=== PATIENT | female | born 1940 | race Caucasian/White ===

== ENCOUNTER 2019-08-03 14:14 | Inpatient (IN) | payer OTHER ==
[~2019-08-03] VITALS: Ht 167.6 cm; Wt 40.6 kg
[2019-08-03 14:23] VITALS: BP 121/70
[2019-08-03 15:12] LABS: BASOPHILS 0.2 % (0.0-2.0); EOSINOPHILS 0.7 % (0.0-3.0); HEMATOCRIT 24.6 % (37.0-47.0); HEMOGLOBIN 7.9 gm/dL (12.0-15.0); LYMPHOCYTES 11.4 % (24.0-44.0); MCH 26.2 pg (26.0-34.0); MCHC 32.1 g/dL (28.0-37.0); MCV 81.7 fL (80.0-100.0); MONOCYTES 7.1 % (1.0-8.0); PLATELET COUNT 454 thou/uL (150-400); POLYS 80.6 % (36.0-66.0); RBC 3.01 mil/uL (4.20-5.00); WBC 8.7 thou/uL (4.0-11.0)
[2019-08-03 15:21] LABS: ANION GAP 12 mmol/L (7-16); BUN 24 mg/dL (7-18); CALCIUM 8.4 mg/dL (8.5-10.1); CHLORIDE 92 mmol/L (98-107); CO2 22 mmol/L (21-32); CREATININE 1.2 mg/dL (0.6-1.0); GLUCOSE 137 mg/dL (74-106); POTASSIUM 4.1 mmol/L (3.5-5.1); SODIUM 126 mmol/L (136-145)
[2019-08-03 15:29] LABS: TROPONIN-I <0.06 ng/mL (<0.06)
--- NOTE | 2019-08-03 16:12 | EKG ---
[facility] [place] [address] ELECTROCARDIOGRAM REPORT Name: SLOANE MCNEAL Room #: [facility].#: [id number] Admission: 08/03/19 Attend Phys: Discharge: Date of : 38 Report #: [id number] THIS REPORT FOR: cc: Jim Maria MD, David R. MD Couchonnal, Luis F. MD ~ THIS REPORT FOR: //name// [facility] ED Test Date: 2019-08-03 Test Time: 14:56:47 Pat Name: SLOANE MCNEAL Department: Room: Gender: F Grip Assembler: NIRMAL ELIZABETH : 1940 Requested By: El Gee Order Number: [id number] MD: Daniel Dai Measurements Intervals [place] Rate: 66 P: 77 OR: 237 QRS: -8 QRSD: 79 T: 79 QT: 387 QTc: 406 Interpretive Statements Sinus rhythm Supraventricular bigeminy Prolonged OR interval Probable left atrial enlargement Anteroseptal infarct, age indeterminate No previous ECG available for comparison Electronically Signed On 08-03-2019 16:11:27 CDT by Daniel Dai [email or web address] <ELECTRONICALLY SIGNED> By: Daniel Dai MD 08/03/19 1611 1456 1456 Daniel Dai MD /EPI
[2019-08-03 16:58] LABS: % SATURATION 4 % (20-39); IRON 14 ug/dL (50-170); TIBC 394 ug/dL (250-450)
[2019-08-03 17:01] LABS: CHOLESTEROL 156 mg/dL (<200); HDL CHOLESTEROL 72 mg/dL (>40); LDL CHOLESTEROL 70 mg/dL (<100); TC:HDL 2.2 Ratio (Not establshd); TRIGLYCERIDE 72 mg/dL (<150); VLDL 14 mg/dL (<40)
[2019-08-03 17:48] VITALS: BP 145/67
[2019-08-03 18:02] LABS: FOLIC ACID 21.9 ng/mL (8.6-58.9)
[2019-08-03 18:08] VITALS: BP 107/71
[2019-08-03 18:27] VITALS: BP 164/65
[2019-08-03 22:59] VITALS: BP 152/62
--- NOTE | 2019-08-04 02:54 | NUR ---
ASSUMED CARE OF PT @1900 PT ARRIVED FROM THE ER @1800. A&OX4 ADMISSION DONE AND PT ORIENTED TO ROOM. IV INTACT AND FLUIDS INFUISING. PT ON CLEAR LIQUID DIET. PT STATED SHE LIVES AT [facility] IN [place]. MARIA A MARY NIECE ([phone]) AND ELLIOTT FLORES ([phone]) BOTH PT DPOA. SPOKE WITH ELLIOTT OVER THE PHONE TO GET PT MED REC SHE STATED SHE WILL TALK TO HER NIECE AND SEND IT OVER. FALL PREC IN PLACE AND CALL LIGHT IN REACH WILL CONT WITH POC TILL EOS.
[2019-08-04 04:45] VITALS: BP 177/66
[2019-08-04 05:29] LABS: HEMATOCRIT 24.9 % (37.0-47.0); HEMOGLOBIN 7.9 gm/dL (12.0-15.0); MCH 26.6 pg (26.0-34.0); MCV 83.3 fL (80.0-100.0); RBC 2.98 mil/uL (4.20-5.00); RDW 16.9 % (10.5-14.5); WBC 5.8 thou/uL (4.0-11.0)
[2019-08-04 08:07] VITALS: BP 170/87
[2019-08-04] MEDS ORDERED: LOSARTAN POTAS100 MG PO (10:10)
[2019-08-04] MEDS ORDERED: LOVASTAT10 PO (10:10)
[2019-08-04 10:14] LABS: ALBUMIN 3.7 g/dL (3.4-5.0); DIRECT BILIRUBIN 0.1 mg/dL (<0.1-0.2); TOTAL BILIRUBIN 0.3 mg/dL (<0.1-1.0); TOTAL PROTEIN 6.3 g/dL (6.4-8.2)
--- NOTE | 2019-08-04 10:15 | NUR ---
PT ADMITTED RELATED TO ANEMIA AND WEAKNESS. CM REVIEWED CHART AND SPOKE WITH CARE TEAM. CM CALLED AND SPOKE WITH PT IN ROOM THIS MORNING. SHE IS A&O X4. CM ROLE INTORDUCED. PT INDICATED SHE LIVES IN AN [place] APT AT [facility]. SHE INDICATED SHE HAS USED A WHEELCHAIR AND 4WW TO ASSIST WITH MOBILITY PHARMACY OPERATIONS COORDINATOR. PT INDICATED SHE HASN'T HAD ANY HH SERVICES RECENTLY. PT INDICATED WHE HAD BEEN SKILLED TO [facility] AND [facility]" MIGHT BE [facility] OR [facility]. PT INDICATED HER NIECES ARE INVOLVED IN HER CARE AND ARE DPOAS. CM SPOKE WITH ELLIOTT FLORES AND SHE CONFIRMED THE ABOVE. PT AND NIECE ARE AGREEABLE TO POST ACUTE CARE STAY AT [facility] IF NEEDED UPON DC. PT TO HAVE EGD AND COLONOSCOPY DONE TOMORROW. CM TO FOLLOW INDICATED WITH DC PLANNING.
--- NOTE | 2019-08-04 11:18 | NUR ---
when pt able to eat, would like to have [facility] altered chopped diet due to chewing concerns.
--- NOTE | 2019-08-04 12:46 | NUR ---
PT TRANSFERRED TO 4N FROM 4S. PT IS AOX4, DENIES PAIN AT THIS TIME. IV IN L EJ REMAINS PATENT WITH NS @ 75ML/HR. PT IS ALSO RECEIVING ANTIBIOTIC THERAPY. NURSE EDUCATED PT ABOUT USING CALL LIGHT. FALL PRECAUTIONS IN PLACE. WILL CONTINUE TO MONITOR.
[2019-08-04 15:00] VITALS: BP 163/76
--- NOTE | 2019-08-04 15:23 | NUR ---
VSS-AFEBRILE. LUNGS CLEAR-ROOM AIR. DISCUSSED TRANSFER TO SENIOR SUITES, PATIENT IS IN AGREEMENT FOR MOVE, VERBALIZED UNDERSTANDING. TAKEN TO SS VIA WHEELCHAIR BY STAFF, WITH ALL PERSONAL BELONGINGS. REPORT GIVEN TO SS RN.
--- NOTE | 2019-08-04 16:08 | NUR ---
PT WAS TRANSFERED TO 4 ROOM 412 SENIOR SUITES THIS AFTERNOON. OT SAW PT AND INDICATED THAT SHE WOULD BENEFIT FROM SHORT TERM POST ACUTE CARE STAY. AWAITING PT EVAL. CAYDEN TO SEND REFERRAL TO [facility] FOR POSSIBLE ADMISSION FOR SNF. CAYDEN SPOKE WITH ABENA AT [facility] AND SHE INDICATED THAT THEY HAVE OPEN BEDS. CM TO FOLLOW INIDCATED WITH DC PLANNING.
[2019-08-04 20:04] VITALS: BP 173/77
[2019-08-05 06:01] LABS: HEMATOCRIT 25.3 % (37.0-47.0); HEMOGLOBIN 7.8 gm/dL (12.0-15.0); MCH 25.9 pg (26.0-34.0); MCHC 30.9 g/dL (28.0-37.0); MCV 83.6 fL (80.0-100.0); RBC 3.03 mil/uL (4.20-5.00); RDW 17.1 % (10.5-14.5); WBC 5.9 thou/uL (4.0-11.0)
[2019-08-05 06:09] LABS: CALCIUM 8.4 mg/dL (8.5-10.1); CREATININE 0.8 mg/dL (0.6-1.0); POTASSIUM 4.4 mmol/L (3.5-5.1)
--- NOTE | 2019-08-05 06:22 | NUR ---
Assumed pt care at 1900. A/OX4,VSS. C/o RUQ pain medicated with Tylenol with relief reported. Pt completed bowel prep last evening and having clear liquid stools at this time. Has been NPO since midnight. IVF infusing via Left EJ IV w/o problems. Fall precautions in place,calls approp. Resting quietly at this time w/o distress. Will continue to monitor pt.
[2019-08-05 07:50] VITALS: BP 179/82
--- NOTE | 2019-08-05 09:48 | NUR ---
Assumed patient care at 0715.All vital signs WNL's except for Blood Pressure reading of 179/82. Dr Stanford contacted. New orders received for Amlodipine 10mg po. Amlodipine 10mg po given with a small sip of water at 0910. Patient has been NPO since midnight, Bowel Prep completed for Colonoscopy. Surgery Transporter took patient to procedure via wheelchair at 0945. Will await for patient's return and any new orders.
--- NOTE | 2019-08-05 11:28 | NUR ---
[facility] SHE RECEIVED REFERRAL AND WILL REVIEW. DP TO FOLLOW.
--- NOTE | 2019-08-05 14:34 | NUR ---
CARE TEAM INDICATED THAT PT WILL LIKELY BE MEDICALLY STABLE TO DISCHARGE FOR POST ACUTE CARE STAY AT [facility] TOMORROW. CM TO FOLLOW INDICATED WITH DC PLANNING.
[2019-08-05 17:59] VITALS: BP 142/71
[2019-08-05 18:13] LABS: PROTIME 10.7 Seconds (9.3-11.4)
[2019-08-05 20:07] VITALS: BP 127/71
[2019-08-06 00:59] LABS: URINE BILIRUBIN NEGATIVE (Negative); URINE BLOOD NEGATIVE (Negative); URINE CLARITY CLEAR; URINE COLOR YELLOW; URINE GLUCOSE-RANDOM* NEGATIVE (Negative); URINE KETONES 2+ (Negative); URINE LEUKOCYTES-REFLEX NEGATIVE (Negative); URINE NITRITE-REFLEX NEGATIVE (Negative); URINE PROTEIN (DIPSTICK) NEGATIVE (Negative); URINE UROBILINOGEN 0.2 E.U./dl (0.2-1.0)
--- NOTE | 2019-08-06 02:33 | NUR ---
Assumed pt care at 1900. Pt A/OX4,VSS.C/o being tired had a long/busy day requested for sleep aid @2029, medicated per EMAR with some relief. Pt c/o RLQ pain medicated with Tylenol per request but threw up right after,dark brown emesis. Zofran administered with relief reported. Pt later c/o excruciating pain 02/19, Tammy MOTORCYLES FINAL INSPECTOR notified and order obtained for Fentanyl 25mcg X1 and adminsitered with relief reported. Pt had a pending UA collection;straight cath order obtained and sample obtained w/o problems. Pt is incontinent of urine,female external cath placed. Pt has been NPO since midnight. Resting comfortably at this time w/o distress noted,will continue to monitor pt. Fall precautions in place.
[2019-08-06 06:08] LABS: HEMATOCRIT 27.7 % (37.0-47.0); HEMOGLOBIN 8.7 gm/dL (12.0-15.0); MCH 26.1 pg (26.0-34.0); MCHC 31.3 g/dL (28.0-37.0); MCV 83.5 fL (80.0-100.0); RBC 3.32 mil/uL (4.20-5.00); RDW 17.5 % (10.5-14.5); WBC 13.6 thou/uL (4.0-11.0)
[2019-08-06 06:16] LABS: ALBUMIN 3.8 g/dL (3.4-5.0); CALCIUM 8.9 mg/dL (8.5-10.1); CREATININE 0.7 mg/dL (0.6-1.0); MAGNESIUM 1.5 mg/dL (1.8-2.4); PHOSPHORUS 3.7 mg/dL (2.5-4.9); POTASSIUM 4.1 mmol/L (3.5-5.1)
[2019-08-06 07:29] VITALS: BP 145/86
--- NOTE | 2019-08-06 08:14 | NUR ---
Nutrition: Pt NPO/clear liquids x 4 days with pending surgery today. Anticipate several more days NPO and pt with severe malnutrition. REC consider change IVFs to Clinimix PPN at 75 mL/hr with 250 mL 20% lipids daily to prevent further nutritional decline
[2019-08-06 17:10] VITALS: BP 128/69
[2019-08-06 19:29] VITALS: BP 146/75
--- NOTE | 2019-08-06 19:31 | NUR ---
ASSUMED CARE OF PATIENT AT 0715, PATIENT ALERT AND ORIENTED X 4. UP WITH MOD. ASSIST TO THE RECLINER, PER PT/ART. PATIENT PAIN IMPROVED, BUT DISCOMFORT STILL REPORTED. PATIENT GIVEN FENTANYL 25,CG X1 PRIOR TO THE SHIFT STARTING. ZOFRAN IV GIVEN THIS AM PRIOR TO THE SHIFT STARTING, NAUSEA IMPROVED. PATIENT IS NPO FOR SURGERY/COLECTOMY/DR NELSON. PATIENT HAS LEFT EJ IN PLACE WITH NS AT 75CC/HR. PATIENT RECEIVED SODIUM CHLORIDE/HYPERTONIC 3% AT 40CC/HR OVER 3 HOURS. PATIENT ALSO RECEIVED MAGNESIUM 2GM STARTED PRIOR TO SURGERY. PREOP GIVEN FLAGYL AND CEFAZOLIN 2 GM. REPORT RECEIVED FROM AURELIANO/CLARA. PATIENT NEEDS CENTRAL LINE OR PICC LINE FOR CLINIMIX/PPN. THIS RN NOTIFIED IV TEAM, IT WILL BE A COUPLE OF HOURS. PATIENT HAS O2 AT 3 LITERS/NC IN PLACE. PATIENT HAS 3 IV'S LEFT EJ AND LEFT FOREARM IV AND LEFT HAND IV FORM SURGERY. PATIENT C/O PAIN WITH ABDOMEN, SHE RECEIVED FENTANYL 25MCG IN SURGERY. 4 LAP SITES WITH DERMABOND. VSS UPON ARRIVAL TO THE UNIT. SCHEDULED TYLENOL GIVEN ORDERED.
--- NOTE | 2019-08-06 23:49 | NUR ---
RISK, BENEFITS, AND ALTERNATIVE TREATMENT DISCUSSED WITH THE PATIENT RELATED TO PICC PROCEDURE. TEACHING GIVEN RELATED TO POSSIBLE COMPLICATIONS SUCH BLEEDING ,INFECTION, CLOT, OR VESSEL PERFORATION. INSTRUCTION GIVEN RELATED TO CLABSI PREVENTION WITH LITERATURE PROVIDED. PATIENT VOICES UNDERSTANDING TO THE ABOVE AND GIVES CONSENT. WRITTEN CONSENT OBTAINED. DOUBLE LUMEN PICC PLACED TO LUE BRACHIAL VEIN. ONE STICK AND NO COMPLICATIONS. PATIENT TOLERATED WELL. CHEST XRAY COMPLETED WITH TIP OF PICC IN R ATRIUM . PICC PULLED BACK 3 CM WITH TIP IN THE SVC. PATIENT'S RN NOTIFIED OKAY TO USE.
[2019-08-07 01:04] LABS: ALBUMIN 3.4 g/dL (3.4-5.0); CALCIUM 8.4 mg/dL (8.5-10.1); CREATININE 1.1 mg/dL (0.6-1.0); MAGNESIUM 2.3 mg/dL (1.8-2.4); PHOSPHORUS 4.1 mg/dL (2.5-4.9); POTASSIUM 3.7 mmol/L (3.5-5.1); TOTAL BILIRUBIN 0.3 mg/dL (<0.1-1.0); TOTAL PROTEIN 6.3 g/dL (6.4-8.2)
[2019-08-07 03:41] VITALS: BP 120/70
--- NOTE | 2019-08-07 04:15 | NUR ---
Assumed pt care at 1900. Pt A/OX4 though sleepy. VSS. C/o generalized abd pain on assessment medicated per EMAR with relief reported. Medicated for nausea X1 with relief. Double PICC line inserted on LUE and PPN initiated w/o any problems noted. Pt has a vogel catheter to DD with yellow/clear urine. 4 lap sites on abd C/D/I with dermabond. Pt resting w/o distress noted, oxygen on at 3L/NC. Pt declined to be repositioned at night stating she prefers laying on her back. Fall precautions in place,calls approp for help. Will continue to monitor pt.
[2019-08-07 06:34] LABS: HEMATOCRIT 21.7 % (37.0-47.0); HEMOGLOBIN 6.8 gm/dL (12.0-15.0); MCH 25.6 pg (26.0-34.0); MCHC 31.1 g/dL (28.0-37.0); MCV 82.4 fL (80.0-100.0); RBC 2.64 mil/uL (4.20-5.00); RDW 17.4 % (10.5-14.5); WBC 15.2 thou/uL (4.0-11.0)
[2019-08-07 06:41] LABS: ALBUMIN 3.1 g/dL (3.4-5.0); CALCIUM 8.1 mg/dL (8.5-10.1); CREATININE 1.1 mg/dL (0.6-1.0); MAGNESIUM 2.3 mg/dL (1.8-2.4); POTASSIUM 3.6 mmol/L (3.5-5.1); TOTAL BILIRUBIN 0.4 mg/dL (<0.1-1.0); TOTAL PROTEIN 5.8 g/dL (6.4-8.2)
[2019-08-07 07:31] VITALS: BP 114/65
--- NOTE | 2019-08-07 09:27 | NUR ---
Note tpn to start and will be managed by pharmacy; recommend 15%dex, 5%AA and 2.9% lipids to start 30ml/hr and reach goal 50ml/hr
[2019-08-07 16:06] VITALS: BP 109/53
--- NOTE | 2019-08-07 16:07 | PATH ---
[facility] [address] [address] PATHOLOGY RPT PROCEDURE Name: SLOANE MCNEAL Room #: 412-P ADM IN M.R.#: [id number] Admission: 08/03/19 Date of : 38 Discharge: Report #: [id number] Path Case #: [id number] [facility] Accession Number: [id number] . 01 Material submitted: . PART A: cecum - BIOPSY OF CECAL MASS PART B: colon - POLYP AT ASCENDING COLON. Modifiers: ascending PART C: hepatic flexure - POLYP AT HEPATIC FLEXURE . 01 Clinical history: . Anemia; abnormal CT of the abdomen . 02 Diagnosis: A. Large intestine, cecal mass, endoscopic biopsy: - POORLY-DIFFERENTIATED ADENOCARCINOMA. . B. Polyp, at ascending colon, endoscopic biopsy: - Inflamed sessile serrated polyp and fragments of hyperplastic polyp. - Sample includes large intestine and small bowel mucosa. - Negative for dysplasia. . C. Polyp, at hepatic flexure, endoscopic biopsy: - Hyperplastic polyps. - Negative for dysplasia. . (IUV:mml; 08/06/2019) QLM 08/06/2019 1254 Local . 02 Comment: Dr. Judy De La Torre concurs with my interpretation. . Findings of this case are communicated to Ms. Aleyda Miramontes, nurse practitioner at approximately 11:45 a.m. on 08/06/2019. . MSI markers (four immunohistochemical stains) are ordered on block A1 and the results of these will be reported in an addendum to follow. . (IUV:mml; 08/06/2019) . 02 Addendum: . Per [facility] Cancer Committee protocol, mismatch repair (MMR) protein immunohistochemical staining was performed. . Reason for testing: To evaluate for evidence of defective mismatch repair proteins. Method: Immunohistochemical staining for the presence or absence of protein expression of one or more of the following MMR protein markers: [address] [address] PATHOLOGY RPT PROCEDURE Name: SLOANE MCNEAL Room #: 412-P ADM IN M.R.#: [id number] Admission: 08/03/19 Date of : 38 Discharge: Report #: [id number] Path Case #: [id number] MLH1, MSH2, MSH6 and PMS2. Tumor type: Invasive adenocarcinoma . Results: MLH1 - Weak and focal MSH2 - Preserved MSH6 - Preserved PMS2 - Lost . Mismatch Repair Status:MMR Deficient (MMR-D) . Interpretation: . (MMR-D) The absence of expression for one or more MMR protein markers within tumor cells is suggestive for defective mismatch repair function often associated with microsatellite instability (MSI). MMR testing by IHC is a screening test and MMR-D cases require confirmation and additional workup by molecular based methodologies. Suggest clinical correlation and follow up to establish the need for potential genetic testing, recurrence risk evaluation and treatment options. . These test results are designed for screening purposes only and are useful tools in identifying cancer patients that are more likely to have Salinas Syndrome related diagnoses. Tests should be interpreted in the context of clinical findings, family history and laboratory data. Abnormal IHC results for MMR protein expression are not considered diagnostic for Salinas Syndrome. (IUV:wood; 08/07/2019 . . . Professional services performed by [employer] at [facility], [address] [place], [place] [address], [place] [address]. Technical services performed by [employer] at [address] [place] [address], [address], [place] [address]. [facility]/08/07/2019 Addendum Electronically Signed by Sara Plunkett MD, Pathologist . 02 Electronically signed: . Sara Plunkett MD, Pathologist NPI- [id number] . 01 Gross description: . A. The specimen is received in formalin, labeled "Sloane Mcneal, biopsy of cecal mass". Received are six segments of pale marsh soft tissue ranging in size from 0.3 to 0.4 cm in maximum dimensions. The specimen is submitted entirely in cassette A1. . B. The specimen is received in formalin, labeled "Sloane Mcneal, polyp at [address] [address] PATHOLOGY RPT PROCEDURE Name: SLOANE MCNEAL Room #: 412-P ADM IN M.R.#: [id number] Admission: 08/03/19 Date of : 38 Discharge: Report #: [id number] Path Case #: [id number] ascending colon". Received are nine segments of pale marsh soft tissue ranging in size from 0.3 to 0.8 cm in maximum dimensions. The surgical margins of the larger two segments are inked and each segment is bisected. The specimen is submitted entirely in cassette B1 and B2. . C. The specimen is received in formalin, labeled "Sloane Mcneal, polyp at hepatic flexure". Received are three segments of pale marsh soft tissue ranging in size from 0.4 to 0.6 cm in maximum dimensions. The surgical margin of the larger segment is inked and the segment is bisected. The specimen is submitted entirely in cassette C1. ([facility]; 08/05/2019) QA/QAC 08/05/2019 1654 Local . 02 Pathologist provided ICD-10: C18.0, K63.5 . 02 CPT . 362130, 869346, 252485, B92265, B02541 Specimen Comment: A courtesy copy of this report has been sent to [phone], [phone] Specimen Comment: [phone], Specimen Comment: Report sent to ,DR RUBIO / DR FU Performed at: 01 [facility] [address] [facility] [address], [place] [address] MD Jose Maria Mak MD Phone: [phone] Performed at: [address] [id number] MD Sara Plunkett MD Phone: [phone]
--- NOTE | 2019-08-07 16:38 | NUR ---
IT IS ANTICPATED THAT PT WILL DC TO 5N SATURDAY. CM TO FOLLOW INDICATED WITH DC PLANNING.
[2019-08-07 19:44] VITALS: BP 96/49
--- NOTE | 2019-08-07 20:22 | NUR ---
ASSUMED CARE OF PATIENT AT 0715, PATIENT ALERT AND ORIENTED X 4. UP WITH MOD. ASSIST X 1 WITH GB AND WALKER. PATIENT UP TO TH CHAIR TODAY. PATIENT POST OP DAY 1. C/O PAIN WITH ABDOMEN AREA, RECEIVED SCHEDULED TYLENOL X 2 THIS SHIFT. PATIENT HAS LEFT DL PICC LINE, WITH CLINIMIX AT 20CC/HR. PATIENT HAS 4 LAP SITES WITH DERMABOND, C/D/I. PATIENT HAS SLIGHT REDNESS TO TAILBONE AREA, FOAN DRESSING APPLIED FOR PROTECTION AND BARRIER CREAM APPLIED. PATIENT WILL START TPN TONIGHT. DIET CHANGED TO FULL LIQUID FOR LUNCH AND DINNER, POOR INTAKE. SUPPLEMENTS ALL MEALS. PT/EVAL AND TREATMENT ORDERED. TURN Q2HRS. FALL PRECAUTIONS IN PLACE. WILL CONTINUE TO MONITOR.
[2019-08-08 04:18] VITALS: BP 129/60
[2019-08-08 04:53] LABS: CALCIUM 8.8 mg/dL (8.5-10.1); CREATININE 0.9 mg/dL (0.6-1.0); PHOSPHORUS 2.5 mg/dL (2.5-4.9); POTASSIUM 3.2 mmol/L (3.5-5.1)
--- NOTE | 2019-08-08 05:53 | NUR ---
PATIENT ALERT AND ORIENTED X4. REMAINED IN BED THROUGHOUT THE NIGHT WITH WEAKNESS. PPN DISCONTINUED PER ORDER AND TPN STARTED AT 30ML/HR. KAMINSKI REMOVED AT 0530 WITH YELLOW URINE. ABDOMINAL LAP SITES X4 SHANNAN DRY AND INTACT. REQUESTED AND GIVEN AMBIEN 5MG, HOWEVER, SLEPT OFF AND ON. CONTINUES WITH POOR APPETITE AND INTAKE. APPEARS FRAIL AND PALE IN COLOR. WILL MONITOR.
[2019-08-08 06:06] LABS: MCHC 32.1 g/dL (28.0-37.0)
[2019-08-08 06:07] LABS: MCH 26.4 pg (26.0-34.0); MCV 82.3 fL (80.0-100.0); RBC 2.32 mil/uL (4.20-5.00); RDW 17.2 % (10.5-14.5); WBC 14.9 thou/uL (4.0-11.0)
[2019-08-08 06:10] LABS: HEMOGLOBIN 6.1 gm/dL (12.0-15.0)
[2019-08-08 06:11] LABS: HEMATOCRIT 19.1 % (37.0-47.0)
[2019-08-08 08:35] VITALS: BP 133/67
[2019-08-08 08:39] VITALS: BP 133/67
--- NOTE | 2019-08-08 12:10 | NUR ---
PT IS AOX3, FORGETFUL AT TIMES. PT VSS, RA O2 SAT 93%. PT HAS POOR APPETITE ONLY ATE 10% OF BREAKFAST.WILL MONITOR FOR OUTPUT OF URINE. PT TRANSFERRING TO GAVE REPORT TO JAMIL ELIZABETH.
[2019-08-08 12:15] VITALS: BP 138/67
[2019-08-08 14:06] VITALS: BP 135/61; BP 148/57
--- NOTE | 2019-08-08 19:32 | NUR ---
ASSUMMED PT CARE AT APPROXIMATELY 0700. PT A&O X4. ASSESSMENT CHARTED. FALL PRECAUTIONS IN PLACE. PT DENIES HAVING CHEST PAIN. PT DENIES HAVING SOB. PT STATED HER ABD HAD PAIN. PT RECIEVED ANALGESICS AND ANTI-EMETICS. PT LAST PAIN ASSESSED AND PT WAS COMFORTABLY SLEEPING. ELECTROLYTE PROTOCOL FOLLOWED. WILL CONT TO MONITOR ELECTROLYTES. TRANSFUSED 1 UNIT OF BLOOD. WILL CONT TO MONITOR HGB. INFORMED DRAba OF PT'S KUB RESULT. PARTNER OF DR. LESLIE MARQUIS STATED UNDERSTANDING AND STATED TO HOLD ON CT OF ABD. EDUCATED PT ABOUT POC. PT STATED UNDERSTANDING AND DENIED HAVING FURTHER QUESTIONS. PT HAS POOR APPETITIE. ENCOURAGED PT TO EAT AND DRINK. PT COMFORTABLE. PT DENIES HAVING FURTHER CONCERNS. PT WEAK AND FATIUGED THROUGHOUT SHIFT. VITAL SIGNS STABLE. BLOOD SUGARS STABLE.
[2019-08-08 19:43] LABS: HEMATOCRIT 26.6 % (37.0-47.0)
[2019-08-08 19:58] VITALS: BP 151/60
[2019-08-09] VITALS: BP 151/61
[2019-08-09 05:00] VITALS: BP 152/71
[2019-08-09 05:07] LABS: HEMATOCRIT 26.8 % (37.0-47.0); MCH 27.8 pg (26.0-34.0); MCHC 33.7 g/dL (28.0-37.0); MCV 82.7 fL (80.0-100.0); RBC 3.24 mil/uL (4.20-5.00); WBC 12.7 thou/uL (4.0-11.0)
[2019-08-09 05:16] LABS: ALBUMIN 3.1 g/dL (3.4-5.0); CALCIUM 8.7 mg/dL (8.5-10.1); CREATININE 0.8 mg/dL (0.6-1.0); MAGNESIUM 1.9 mg/dL (1.8-2.4); TOTAL BILIRUBIN 0.7 mg/dL (<0.1-1.0); TOTAL PROTEIN 5.9 g/dL (6.4-8.2)
[2019-08-09 07:41] VITALS: BP 134/72
[2019-08-09 11:38] VITALS: BP 137/65
[2019-08-09 15:18] VITALS: BP 112/55
--- NOTE | 2019-08-09 16:00 | EKG ---
[facility] [place] [address] ELECTROCARDIOGRAM REPORT Name: SLOANE MCNEAL Room #: 204-P ADM IN M.R.#: [id number] Admission: 08/03/19 Attend Phys: Winter Stanford Discharge: Date of : 38 Report #: [id number] THIS REPORT FOR: cc: Jim Maria MD, David R. MD Couchonnal, Luis F. MD ~ THIS REPORT FOR: //name// [facility] Test Date: 2019-08-09 Test Time: 10:12:34 Pat Name: SLOANE MCNEAL Department: Room: 204 Gender: F Data Conversion Operator: Loretta CHAN : 1940 Requested By: Zach Farrell Order Number: [id number] MD: Daniel Dai Measurements Intervals [place] Rate: 85 P: -88 IA: 182 QRS: -26 QRSD: 70 T: 73 QT: 377 QTc: 449 Interpretive Statements Sinus or ectopic atrial rhythm Atrial premature complex Borderline left axis deviation Compared to ECG 08/03/2019 14:56:47 Electronically Signed On 08-09-2019 15:58:59 CDT by Daniel Dai [email or web address] <ELECTRONICALLY SIGNED> By: Daniel Dai MD 08/09/19 1558 1012 1012 Daniel Dai MD /EPI
--- NOTE | 2019-08-09 17:59 | NUR ---
ASSUMMED PT CARE AT APPROXIMATELY 0700. PT A&O X4. ASSESSMENT CHARTED. FALL PRECAUTIONS IN PLACE. PT DENIES HAVING CHEST PAIN. PT DENIES HAVING SOB. PT STATED SHE HAD ABD PAIN. PT RECEIVED ANALGESICS. PT STATED ANALGESICS HELPED RELIEVE PAIN. PT'S HEART RHYTHM IRREGULAR COMPARED TO YESTERDAY. PT HAD A RUN OF VTACH. INFORMED DR. RUBIO. DR. RUBIO STATED TO D/C TPN. ORDERS IMPLEMENTED. DR. NELSON STATED TO ORDER EKG. EKG ORDERED. CALLED ON-CALL DR. RODRIGUEZ. READ RESULTS TO DR. RODRIGUEZ. DR. RODRIGUZE STATED TO CONSULT CARDIOLOGY. ORDERS IMPLEMENTED. DR. BLEDSOE STATED PT'S QTc IS STABLE ENOUGH FOR REGLAN. PT DENIED HAVING NAUSEA. ENCOURAGED PT TO EAT AND DRINK. PT HAS POOR APPETITE. EDUCATED PT AND PT'S FAMILY ABOUT POC. PT AND PT'S FAMILY STATED UNDERSTANDING AND DENIED HAVING FURTHER QUESTIONS. PT'S FAMILY STATED THEY COULD DROP OFF PT'S DENTURES TOMORROW. PT COMFORTABLE IN BED. PT DENIES HAVING FURTHER CONCERNS. VITAL SIGNS STABLE. BLOOD SUGARS STABLE.
[2019-08-09 19:52] VITALS: BP 131/52
[2019-08-10 05:12] VITALS: BP 150/62
[2019-08-10 05:29] LABS: ALBUMIN 2.8 g/dL (3.4-5.0); CALCIUM 8.7 mg/dL (8.5-10.1); CREATININE 0.9 mg/dL (0.6-1.0); MAGNESIUM 1.9 mg/dL (1.8-2.4); PHOSPHORUS 4.5 mg/dL (2.5-4.9); POTASSIUM 4.1 mmol/L (3.5-5.1)
--- NOTE | 2019-08-10 07:22 | NUR ---
PATIENT VERY FRAIL AND SKINNY.ALERT,WILL ANSWER QUESTIONS.FORGETFUL.WILL SPIT DARK EMESIS AND VERY SCANT.TURN Q2 HOURS AND PRN.PAIN FAIRLY CONTROLLED WITH TYLENOL.BEDTIME BLOOD GLUCOSE WAS 108.POC CONTINUED.
[2019-08-10 07:51] VITALS: BP 113/69
--- NOTE | 2019-08-10 09:16 | 2DMMODE ---
[facility] [address] [address] 2 D/M-MODE ECHOCARDIOGRAM Name: SLOANE MCNEAL Room #: 204-P ADM IN M.R.#: [id number] Admission: 08/03/19 Attend Phys: Winter Stanford Discharge: Date of : 38 Report #: [id number] THIS REPORT FOR: cc: Jim Maria MD, David R. MD Mancuso, Gerald M. MD [facility] ~ APPROVED REPORT Study performed: 08/10/2019 07:59:24 EXAM: Comprehensive 2D, Doppler, and color-flow Echocardiogram Patient Location: Bedside Room #: 204 Status: routine BSA: 1.40 HR: 67 bpm BP: 150/62 mmHg Other Information Study Quality: Technically Limited Technically limited study due to very thin body habitus, severe COPD. Indications COPD NSVT 2D Dimensions IVSd: 11.45 (7-11mm) LVOT Diam: 18.71 (18-24mm) LVDd: 28.27 mm PWd: 10.78 (7-11mm) LVDs: 19.13 (25-40mm) Aortic Root: 30.90 mm IVC: 8.00 mm Aortic Valve AoV Peak Haile.: 1.11 m/s AO Peak Gr.: 4.92 mmHg LVOT Max P.89 mmHg LVOT Max V: 0.85 m/s MELLISA Vmax: 2.10 cm2 Mitral Valve E/A Ratio: 0.6 MV Decel. Time: 384.62 ms MV E Max Haile.: 0.51 m/s [facility] [address] [address] 2 D/M-MODE ECHOCARDIOGRAM Name: SLOANE MCNEAL Room #: 204-P ADM IN M.R.#: [id number] Admission: 08/03/19 Attend Phys: Winter Jasso Discharge: Date of : 38 Report #: [id number] A Haile.: 0.91 m/s MV PHT: 111.54 ms IVRT: 184.54 ms Tricuspid Valve TR Peak Haile.: 2.99 m/s RAP Estimate: 5.00 mmHg TR Peak Gr.: 35.69 mmHg PA Pressure: 41.00 mmHg Left Ventricle The left ventricle is normal size. There is normal left ventricular wall thickness. Left ventricular systolic function is hyperdynamic. LVEF is 60% Transmitral Doppler flow pattern suggests mild impaired LV relaxation. Right Ventricle The right ventricle is normal size. The right ventricular systolic function is normal. Atria The left atrium size appears within normal limits. The right atrium size is normal. Aortic Valve The aortic valve is not well visualized. No aortic regurgitation is present. There is no aortic valvular stenosis. Mitral Valve Mild mitral annular calcification. Mild mitral regurgitation. No evidence of mitral valve stenosis. Tricuspid Valve The tricuspid valve is normal in structure. Trace to mild tricuspid regurgitation. PAP is estimated at 41 mmHg. Pulmonic Valve Pulmonic valve is not well visualized. Great Vessels The aortic root is normal in size. IVC is normal in size and collapses >50% with inspiration. Pericardium There is no pericardial effusion. <Conclusion> [facility] [address] [place] [address] 2 D/M-MODE ECHOCARDIOGRAM Name: SLOANE MCNEAL Room #: 204-P [facility] IN .R.#: [id number] Admission: 08/03/19 Attend Phys: Winter Jasso Discharge: Date of : 38 Report #: [id number] The left ventricle is normal size. LVEF is 60% Transmitral Doppler flow pattern suggests mild impaired LV relaxation. The right ventricle is normal size. The left atrium size appears within normal limits. The aortic valve is not well visualized. Mild mitral annular calcification. Mild mitral regurgitation. Trace to mild tricuspid regurgitation. PAP is estimated at 41 mmHg. The aortic root is normal in size. There is no pericardial effusion. <ELECTRONICALLY SIGNED> By: Andrea Cantu MD, FACC 08/10/19914 4 4 Andrea Cantu MD, FACC /INF
--- NOTE | 2019-08-10 11:19 | NUR ---
PATIENT HAS BEEN EVALUATED BY DR. CARVALHO, AND MEETS CRITERIA FOR ACUTE INPATIENT REHABILITATION ADMISSION. PLAN WILL BE TO BRING PT TO [facility] REHAB TODAY. CASE MANAGEMENT/SW HAS BEEN NOTIFIED.
[2019-08-10 11:38] VITALS: BP 105/59
--- NOTE | 2019-08-10 15:01 | NUR ---
Patient accepted to [facility] once stable. Attempted to call patient in room to no avail. Sp with niece Ms Brewster who reports allow decision to be patients as she is competent to make decisions. Niece prefers [facility] but wants patient to make decision.
[2019-08-10 16:00] VITALS: BP 130/71
--- NOTE | 2019-08-10 17:07 | PATH ---
[facility] [place] [address] PATHOLOGY RPT PROCEDURE Name: SLOANE MCNEAL Room #: 204-P ADM IN M.R.#: [id number] Admission: 08/03/19 Date of : 38 Discharge: Report #: [id number] Path Case #: [id number] [facility] Accession Number: [id number] . 01 Material submitted: . colon - RIGHT COLON. Modifiers: right . 01 Clinical history: . Cecal mass . 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 - TUMOR INVADES THROUGH THE MUSCULARIS PROPRIA INTO SUBSEROSAL CONNECTIVE TISSUE. - Additional sessile serrated polyps x2 identified within large intestine along with hyperplastic polyps; negative for dysplasia. - Margins of resection free of dysplasia or malignancy; closest proximal margin is 8.4 cm away. - ONE LYMPH NODE SHOWING METASTATIC ADENOCARCINOMA OF 13 SAMPLED (05/15). . (IUV:mml; 08/10/2019) . . . Surgical Pathology Cancer Case Summary . COLON AND RECTUM: Resection, Including Transanal Disk Excision of Rectal Neoplasms . . Procedure ___ Right hemicolectomy . . Tumor Site ___ Cecum . . Tumor Size Greatest dimension (centimeters): 4.5 cm in greatest dimension . . Macroscopic Tumor Perforation ___ Not identified . . [address] [address] PATHOLOGY RPT PROCEDURE Name: SLOANE MCNEAL Room #: 204-P ADM IN M.R.#: [id number] Admission: 08/03/19 Date of : 38 Discharge: Report #: [id number] Path Case #: [id number] Histologic Type ___ Adenocarcinoma . . Histologic Grade ___ G3: Poorly differentiated . . Tumor Extension ___ Tumor invades through muscularis propria into pericolonic/subserosal connective tissue . . Margins ___ All margins are uninvolved by invasive carcinoma, high grade dysplasia / intramucosal carcinoma as well as adenoma Margins examined: Proximal, distal, and mesenteric margins Distance of invasive carcinoma from closest margin (millimeters or centimeters): 8.4 cm Specify closest margin: Proximal margin . . Treatment Effect ___ No known presurgical therapy . . Lymphovascular Invasion ___ Indeterminate . . Perineural Invasion ___ Not identified . . Tumor Deposits ___ Not identified . . Regional Lymph Nodes Number of Lymph Nodes Involved: 1 Number of Lymph Nodes Examined: 13 . . Pathologic Stage Classification (pTNM, AJCC 8th Edition) . Primary Tumor (pT) ___ pT3:Tumor invades through muscularis propria into pericolonic/subserosal connective tissue [address] [address] PATHOLOGY RPT PROCEDURE Name: SLOANE MCNEAL Room #: 204-P [facility] IN M.R.#: [id number] Admission: 08/03/19 Date of : 38 Discharge: Report #: [id number] Path Case #: [id number] . . Regional Lymph Nodes (pN) ___ pN1a:One regional lymph node is positive . . Distant Metastasis (pM) ___ pMx:Unknown . . Additional Pathologic Findings: Sessile serrated polyps as well as hyperplastic polyps . (IUV:mml; 08/10/2019) [facility] 08/10/2019 1645 Local . 02 Electronically signed: . Sara Plunkett MD, Pathologist NPI- [id number] . 01 Gross description: . The specimen is received in formalin, labeled "Sloane Mcneal, right colon". Received is a right hemicolectomy specimen consisting of a segment of small bowel measuring 7.4 cm in length by 1.5 cm in diameter contiguous with a segment of colon measuring 26.2 cm in length and ranges in diameter from 2.5 to 3.8 cm. Both margins are stapled closed. The serosal surface of the small bowel is pink-najera and glistening in appearance. The serosal surface of the colon is pink-najera in appearance with a moderate amount of overlying adhesions. The attached pericolic fat measures up to 4.2 cm in thickness. The mesenteric margin is inked orange. The specimen is opened along the antimesenteric line to reveal light marsh mucosa with normal architectural folds within the small bowel. The ileocecal valve is pale marsh and slightly lipomatous in appearance. 1.0 cm adjacent to the ileocecal valve within the cecal pouch, there is a well-circumscribed, focally ulcerated and pink-marsh mass measuring 4.5 x 2.2 cm, which is 8.4 cm from the proximal margin, and 23.3 cm from the distal margin. The opposing serosal surface is inked black. Sectioning reveals the mass to grossly extend through the muscularis propria, abuts the inked serosal surface, and is 6.3 cm from the mesenteric margin. 0.9 cm distal to the mass, and 1.5 cm from the ileocecal valve, there is a secondary possible mass measuring 1.0 x 0.7 cm which is white-marsh, irregular in contour and slightly flaky in appearance sectioning through this possible mass reveals gross confinement to the mucosa. 5.5, 6.3, 11.2, and 15.1 cm distal to the mass, there are four yellow-green, possible previous biopsy sites ranging in size from 0.4 to 1.0 cm, the closest of which is 10.2 cm from the distal margin, and 11.8 cm from the proximal margin. Between previous biopsy sites 1 and 2, there is a single [address] [address] PATHOLOGY RPT PROCEDURE Name: SLOANE MCNEAL Room #: 204-P ADM IN M.R.#: [id number] Admission: 08/03/19 Date of : 38 Discharge: Report #: [id number] Path Case #: [id number] pale marsh polyp identified measuring 0.3 cm, which is 6.2 cm distal to the mass. Immediately adjacent to the second biopsy site, there is a third possible mass identified measuring 1.0 x 0.7 cm, which is 6.3 cm distal to the mass, and 11.4 cm from the closest margin open proximal). Sectioning through this possible mass reveals gross confinement to the mucosa. 6.3 cm distal to possible previous biopsy site #4, there is a possible quaternary mass which is white-marsh and irregular in contour, measuring 1.1 x 0.8 cm, which is 2.2 cm from the closest margin (distal). The remainder of the colonic mucosa is two additional polyps are noted measuring 0.2 and 0.3 cm, which are 10.2 cm from the proximal margin and 15.9 cm from the distal margin. The appendix is absent. Sectioning through the attached pericolic fat reveals five readily identifiable possible lymph nodes ranging in size from 0.2 to 0.5 cm in maximum dimensions. The specimen is submitted representatively as follows: . A1 proximal margin, en face A2 distal margin, en face A3 perpendicular section through mesenteric margin A4-A5 healthcare representative sections of mass to show relationship with inked serosal surface A6-A7 additional healthcare representative sections of mass A8 possible secondary mass distal to primary mass A9 possible previous biopsy site #1 distal to mass A10 possible previous biopsy site #2 distal to mass with adjacent possible tertiary mass A11 polyp located between possible previous biopsy site #1 and #2 A12 possible previous biopsy site #3 distal to mass A13 possible previous patchy site #4 distal to mass A14 possible quaternary mass near distal margin A15 two colonic polyps A16 small bowel mucosa A17 ileocecal valve A18 uninvolved colonic mucosa A19 intact possible lymph nodes. . The specimen is placed into a lymph node enhancement solution. . After adequate fixation in a lymph node enhancement solution, further dissection and palpation of the pericolic fat reveals three additional possible lymph nodes ranging in size from 0.1 to 0.3 cm. Additional healthcare representative sections are submitted as follows: . A20 intact possible lymph nodes A21-A23 lymphovascular bundles. (CAA; 08/07/2019) QAC/QAC 08/07/2019 1640 Local . 02 Pathologist provided ICD-10: [facility] [address] [place] [address] PATHOLOGY RPT PROCEDURE Name: SLOANE MCNEAL Room #: 204-P ADM IN .R.#: [id number] Admission: 08/03/19 Date of : 38 Discharge: Report #: [id number] Path Case #: [id number] C18.0, K63.5 . 02 CPT . [id number] Specimen Comment: A courtesy copy of this report has been sent to [phone] Specimen Comment: [id number], Specimen Comment: Report sent to ,DR RUBIO / DR FU Performed at: 01 [facility] [place] [address], [place], [place] [id number] MD Jose Maria Mak MD Phone: [phone] Performed at: [address] [facility] [address] [id number] MD Sara Plunkett MD Phone: [phone]
[2019-08-10 19:45] VITALS: BP 128/55
--- NOTE | 2019-08-11 03:39 | NUR ---
ASSSUMED CAER OF PT AT 1900HRS. PT IS AOX4 AND LETS NEEDS BE KNOWN. FALL PRECAUTION IN PLACE. PT IS COMPLAINING OF NAUSEA AND PAIN. PRNS GIVEN WITH LITTLE SUCCESS. COFFEE GROUND EMISIS NOTED. LOVENOX HELD PENDING H&H IN THE AM. ASSESSMENTS CHARTED. PT WAS NOT ABLE TO SLEEP MUCH THIS SHIFT. PT HAD MULTIPLE SMALL EMISIS. PT TURNED Q2H. VSS AND NO S/S OF ACUTE DISTRESS. WILL CONTINUE TO MONITOR.
[2019-08-11 04:24] VITALS: BP 124/68
[2019-08-11 05:12] LABS: HEMATOCRIT 26.5 % (37.0-47.0); MCH 29.1 pg (26.0-34.0); MCV 85.7 fL (80.0-100.0); RBC 3.1 mil/uL (4.20-5.00); RDW 16.7 % (10.5-14.5); WBC 9.2 thou/uL (4.0-11.0)
[2019-08-11 05:25] LABS: ALBUMIN 2.7 g/dL (3.4-5.0); CALCIUM 8.4 mg/dL (8.5-10.1); CREATININE 0.9 mg/dL (0.6-1.0); MAGNESIUM 2.3 mg/dL (1.8-2.4); PHOSPHORUS 4.9 mg/dL (2.5-4.9); POTASSIUM 3.9 mmol/L (3.5-5.1)
[2019-08-11 07:47] VITALS: BP 128/71; BP 150/68
[2019-08-11 11:15] VITALS: BP 135/51
--- NOTE | 2019-08-11 11:51 | NUR ---
Nutrition: Day 1 calorie count pt consumed 380 kcals and 21 gm protein ( 30% kcal needs, 38% protein needs ). KUB showing moderate post op ileus and pt having issues related to N/V. If remains on diet and tolerating small amounts, could consider Clinimix PPN at 60 mL/hr. If made NPO, REC standard TPN goal rate 50 mL/hr. Follow one more day calorie count
--- NOTE | 2019-08-11 14:41 | NUR ---
Patient is not stable for dc to acute rehab. 5N to cont to follow patient with N/V today. Updated DPOA.
[2019-08-11 16:06] VITALS: BP 138/54
--- NOTE | 2019-08-11 17:34 | NUR ---
PT A&OX3. CONFUSED AT TIMES. PICC LINE INTACT IN BIGG. PT TRANSFERS WITH [facility]. PT DID COUGH SM AMOUNTS OF COFFEE GROUND IN COLOR FLEM, HAD SMALL BLACK TARY STOOL WELL. VSS. WILL CONT POC.
[2019-08-11 20:06] VITALS: BP 142/57
[2019-08-12] VITALS (12 sets, daily range): BP systolic 66–139; BP diastolic 30–70
--- NOTE | 2019-08-12 04:50 | NUR ---
ASSESSMENTS CHARTED, MEDS CHARTED GIVEN. PATIENT HAS BEEN RESTING IN BED DURING SHIFT. PATIENT IS INCONTINENT OF BOWEL AND BLADDER, HAS HAD MULTIPLE BLACK LIQUID STOOLS DURING SHIFT AND IS SPITTING UP BLACK GASTRIC FLUID. KUB SHOWED MODERATE ILLIUS. PLAN IS TO STABLIZE DIGESTIVE SYSTEM THEN TRANSFER TO [address] [place] [address].
[2019-08-12 05:20] LABS: HEMATOCRIT 24.2 % (37.0-47.0); HEMOGLOBIN 7.9 gm/dL (12.0-15.0); MCH 28.6 pg (26.0-34.0); MCHC 32.7 g/dL (28.0-37.0); MCV 87.5 fL (80.0-100.0); RBC 2.76 mil/uL (4.20-5.00); RDW 16.8 % (10.5-14.5); WBC 15.6 thou/uL (4.0-11.0)
[2019-08-12 05:29] LABS: CALCIUM 8.5 mg/dL (8.5-10.1); CREATININE 1.1 mg/dL (0.6-1.0); MAGNESIUM 2.8 mg/dL (1.8-2.4); POTASSIUM 3.9 mmol/L (3.5-5.1)
--- NOTE | 2019-08-12 10:53 | NUR ---
Note reorder for tpn. Continue to recommend start of 30ml/hr and progress to goal of 50ml/hr
--- NOTE | 2019-08-12 22:17 | NUR ---
2099; PT CODED ON , WAS HAVING SHALLOW BREATHING WITH WEAK PULSE, THEN VOMITTED AND AND LOST PULSE. Pt given 4 rounds of Epi during code and was pulseless still at 2115. 2116: No pulse at 2115, code called per Dr. Vidal. However at 2116 pt went into sinus tachycardia in 130's with very faint pulse. 2125: Pt intubated and transferred to ICU 2129: Pt pulse dropping into 30's; Epinephrine 1 amp given. 2N nurse talking with family on phone, niece Wendy, who requested pt not be coded again. 2199: Pt bathed, still has weak heart rate in 40-50 range. family on
--- NOTE | 2019-08-12 22:18 | NUR ---
FURNITURE UPHOLSTERER ACTIVATED AT 2056 FOR DECRESES LOC. ON ARRIVAL TO ROOM, CODE BLUE IN PROGESS. SEE CODE BLUE FLOWSHEET FOR DETAILS.
--- NOTE | 2019-08-12 22:20 | NUR ---
CARE ASSUMED AT 1900. PT AO X 1. ASKING FOR SOMETHING TO HELP HER SLEEP AT ABOUT 1999. AT 2099, PT STARTED HAVING AGONAL BREATHING. RAPID ACTIVATED. PT BP AT THIS TIME WAS 86/53, AND POSTER HAD NOTIFIED RN. BG 283. PT WAS NOT RESPONDING TO VERBAL STIMULI, OR STERNAL RUB. CODE BLUE WAS ACTIVATED. ABOUT 5 MINUTES INTO THE CODE, MARAL GALLAGHER WAS NOTIFIED. ELLIOTT EXPRESSED CONCERN THAT PATIENT WAS DNR PREVIOUS. AT 2114, PT WAS NOT RESPONDING TO THE CODE AND PT ASYTOLE ON THE MONITOR. TIME OF WAS CALLED AT 2114. A FEW MINUTES LATER, PT WAS NOTED TO HAVE A PULSE AND THEREFORE WAS INTUBATED AND TRANSFERRED ICU. DPOA WAS UPDATED ABOUT PT TRANSFER AGAIN AND CONDITION. DPOA STATED THAT PT SHOULD BE DNR AND NO MORE CODE TO THE PT.
--- NOTE | 2019-08-12 22:38 | NUR ---
Lucy Pate, pattern grader supervisor spoke with pt's niece, Wendy, again. Family wishes to proceed to comfort care. RT notified to come extubate pt.
--- NOTE | 2019-08-12 22:44 | NUR ---
PT EXTUBATED AT 2240 PER RT. PT HAS AGONAL BREATHING, UNALBE TO GET PULSE OX, HR 42, BUT IS DROPPING SLOWLY INTO HIGH 30'S
== END 2019-08-12 23:30 | DRG 329 ==
LOC: ER 14:14 → 4N 16:51 → EROBS 16:51 → 4S 18:08 → 4N 08-04 11:18 → 2N 08-08 11:55 → ICU 08-12 21:38
PROVIDERS: Emergency Medicine; Internal Medicine; Nurse Practitioner; Surgery; ADMIT Hospitalist
PROC: 0DBH8ZX Excision of Cecum, Via Natural or Artificial Opening Endoscopic, Diagnostic (ICD-10-PCS; principal; 2019-08-05)
PROC: 0DBK8ZX Excision of Ascending Colon, Via Natural or Artificial Opening Endoscopic, Diagnostic (ICD-10-PCS; principal; 2019-08-05)
PROC: 0DBB8ZX Excision of Ileum, Via Natural or Artificial Opening Endoscopic, Diagnostic (ICD-10-PCS; principal; 2019-08-05)
PROC: 0DTF0ZZ Resection of Right Large Intestine, Open Approach (ICD-10-PCS; 2019-08-06)
PROC: 30233N1 Transfusion of Nonautologous Red Blood Cells into Peripheral Vein, Percutaneous Approach (ICD-10-PCS; 2019-08-08)
PROC: 5A12012 Performance of Cardiac Output, Single, Manual (ICD-10-PCS; 2019-08-11)
DX: K92.2 Gastrointestinal hemorrhage, unspecified (principal); E43 Unspecified severe protein-calorie malnutrition; E87.1 Hypo-osmolality and hyponatremia; Z68.1 Body mass index [BMI] 19.9 or less, adult; C18.0 Malignant neoplasm of cecum; I47.1 Supraventricular tachycardia; K56.7 Ileus, unspecified; K91.89 Other postprocedural complications and disorders of digestive system; D62 Acute posthemorrhagic anemia; I10 Essential (primary) hypertension; J44.9 Chronic obstructive pulmonary disease, unspecified; M19.90 Unspecified osteoarthritis, unspecified site; G47.00 Insomnia, unspecified; M85.80 Other specified disorders of bone density and structure, unspecified site; D50.9 Iron deficiency anemia, unspecified; I46.9 Cardiac arrest, cause unspecified; F03.90 Unspecified dementia, unspecified severity, without behavioral disturbance, psychotic disturbance, mood disturbance, and anxiety; Z90.49 Acquired absence of other specified parts of digestive tract; Z87.891 Personal history of nicotine dependence; Z90.710 Acquired absence of both cervix and uterus; Z86.73 Personal history of transient ischemic attack (TIA), and cerebral infarction without residual deficits; Z86.010 Personal history of colon polyps; Z88.2 Allergy status to sulfonamides; Z79.899 Other long term (current) drug therapy
CPT/HCPCS: 10078; 10081; 10091; 10195; 27000; 50010; 50101; 50249; 50386; 50455; 50525; 50555; 50558; 51708; 51712; 52265; 53307; 53310; 54118; 56524; 56525; 56526; 56528; 57092; 62110; 62900; 70005